=== PATIENT | female | born 1985 | race African-American/Black ===

== ENCOUNTER 2017-08-05 10:54 | Emergency (ER) | payer BC ==
[2017-08-05] MEDS ORDERED: Al Hydrox/Mg Hydrox/Simet LIQ* 30 ML UDC PO ONE (11:50)
[2017-08-05] MEDS ORDERED: Ondansetron INJ* 2 MG/ML VIAL IV ONE (11:50)
[2017-08-05] MEDS ORDERED: NS 0.9% 1000 ML* 1,000 ML IV ONE (11:50)
--- NOTE | 2017-08-05 12:08 | UC ---
Nausea/Vomiting/Diarrhea HPI - HPI Summary HPI Summary: 32 year old female with no significant pmhx here with URI symptoms that started last week and today nausea and vomiting since this morning. Reports she had congestion and cough for one week, and today she had 4 episodes of NBNB vomiting. Reports upper abdominal pain after several episodes of vomiting. Reports loose bowel movement this morning. No fever or chills. Denies urinary symptoms. No travel history. - History of Current Complaint Chief Complaint: UCGeneralIllness Stated Complaint: VOMITING Time Seen by Provider: 08/05/17 11:25 Hx Last Menstrual Period: 07/06/17 Pain Intensity: 7 Location: Diffuse - Allergies/Home Medications Allergies/Adverse Reactions: Allergies Allergy/AdvReac Type Severity Reaction Status Date / Time No Known Allergies Allergy Verified 08/05/17 11:17 PMH/Surg Hx/FS Hx/Imm Hx - Surgical History Surgical History: Yes Surgery Procedure, Year, and Place: ovarian cyst removal - Family History Known Family History: Positive: None - Social History Alcohol Use: None Substance Use Type: None Smoking Status (MU): Never Smoked Tobacco Review of Systems Constitutional: Negative Skin: Negative Eyes: Negative ENT: Negative Respiratory: Cough Cardiovascular: Negative Gastrointestinal: Vomiting Genitourinary: Negative Motor: Negative Neurovascular: Negative Musculoskeletal: Negative Neurological: Negative Psychological: Negative Is Patient Immunocompromised?: No All Other Systems Reviewed And Are Negative: Yes Physical Exam Triage Information Reviewed: Yes Appearance: Well-Appearing Vital Signs: Initial Vital Signs Temp 36.6 C 08/05/17 11:12 Pulse 66 08/05/17 11:12 Resp 16 08/05/17 11:12 BP 110/57 08/05/17 11:12 Pulse Ox 100 08/05/17 11:12 Vital Signs Reviewed: Yes ENT: Positive: Other - dry mucosal membrane Respiratory Exam: Normal Cardiovascular Exam: Normal Abdominal Exam: Normal Abdomen Description: Negative: CVA Tenderness (R), CVA Tenderness (L), Distended Neurological Exam: Normal Psychological Exam: Normal Skin Exam: Normal Re-Evaluation - Re-Evaluation First Eval Re-Evaluation Time: 01:00 Change: Improved Comment: Tolerating ice chips Second Eval Change: Improved - Tolerated cracker Naus/Vom/Diarrhea Course/Dx - Course Course Of Treatment: patient has no vaginal bleeding or abdominal pain. No concern for evaluation of ectopic. Instructed patient to follow up with bar catcher - Differential Dx/Diagnosis Differential Diagnoses - Female: Enterocolitis, Esophagitis/Gastritis, Vomiting , Pyelonephritis Provider Diagnoses: Hyperemesis gravidarium Condition At Discharge: Good Discharge - Sign-Out/Discharge Documenting (check all that apply): Discharge/Admit/Transfer - Discharge Plan Condition: Good Disposition: HOME Prescriptions: Ondansetron [Zofran Odt] 4 mg PO Q6HR PRN #20 tab PRN Reason: Vomiting 21/Iron Fu/Folic Acid [ Complete] 1 tab PO DAILY #30 tab Patient Education Materials: Hyperemesis Gravidarum (ED) Referrals: Baylee Suarez MD [Primary Care Provider] - Additional Instructions: Follow up with your bar catcher doctor for full evaluation - Billing Disposition and Condition Condition: GOOD Disposition: Home
[2017-08-05] MEDS ORDERED: D5NS 0.9% 1000 ML BAG* 1,000 ML IV SCH (13:00)
[2017-08-05 15:04] VITALS: BP 112/70
== END 2017-08-05 15:15 | disposition home or self-care (01) ==
LOC: UCEAST 10:54
DX: O21.0 Mild hyperemesis gravidarum (principal); R10.11 Right upper quadrant pain; R05 Cough; Z3A.00 Weeks of gestation of pregnancy not specified
CPT/HCPCS: 81003; 84702; 96360; 96361; 96374; 99213; A9270-GY; G0463; J2405

== ENCOUNTER 2018-03-20 08:02 | Inpatient (IN) | payer BC ==
[2018-03-20] MEDS ORDERED: Buffered Lidocaine 1% SYRIN* 1 ML/SYRINGE INTRADERM ONE (08:19)
--- NOTE | 2018-03-20 08:42 | HP ---
General Information - Reason for Visit Term induction at 39 weeks in presence of IUGR - General Information Maternal Age: 33 Grav: 2 Para: 0 SAB: 1 IEA: 0 Estimated Due Date: 03/27/18 Determined By: Early Ultrasound Gestational Age in Weeks/Days: 39-0/7 Maternal Blood Type and Rh: O Positive - Results this Serology/RPR Result: Non-Reactive Rubella Result: Immune HBsAg Result: Negative HIV Result: Negative GBS Culture Result: Negative Past Medical History Delivery History: See Records Delivery History Comment: primip Pertinent Past Medical History: See Records Past Medical History Comment: PCOS Obesity with significant weight loss prior to Pertinent Past Surgical History: See Records Past Surgical History Comment: 03/2013 Laparoscopy to remove left ovarian cyst - Antepartal Records Antepartal Records: Reviewed, Complicated by: - Obesity, IUGR, mother is a carrier for SMA Review of Systems Constitutional: Comfortable CV Complaint: No Respiratory: Shortness of Breath: No Gastrointestinal: No Nausea/Vomiting, Normal Bowel Movement Genitourinary: No Dysuria, No Bleeding, No Leaking Fluid Musculoskeletal: No Complaint, No Epigastric Pain Neurological: No Headache, No Visual Changes Movement: Normal Exam Allergies/Adverse Reactions: Allergies No Known Allergies Allergy (Verified 08/05/17 11:17) BP 126/79 HR 92 RR 20 T 98.6 SpO2 99% on RA - Measurements Height: 5 ft 1 in Weight: 240 lb Weight in lbs: [id number] Body Mass Index (BMI): 45.3 Pre- Weight: 177 lb - Exam Breast: Breast Exam Deferred CVA: No CVA Tenderness Extremities: No Edema Heart: Normal Rhythm/Heart Sounds HEENT: No Significant Findings Lungs: Clear Bilaterally Rectal: Rectal Exam Deferred Reflexes: DTR 2+ Thyroid: No Thyromegaly - Abdominal Exam Abdomen Exam: Non-Tender - Ultrasound/Biophysical Profile Ultrasound Status: Not Done Targeted Exam Findings See L&D Outpatient Visit Provider Note for Findings: N/A Estimated Weight: EFW 5lbs by sono 03/10/18 Cervical Exam: 1cm Effacement: 80% Station: -1 Presenting Part: Vertex Membrane Status: Intact Sterile Speculum Exam: not done Bleeding/Discharge: None EFM Findings - External Monitor Findings Baseline Heart Rate: 140 External Monitor Findings: Accelerations Present, No Pattern of Variable or Late Decelerations, Variability Moderate, Baseline Stable External Monitor Findings Comment: No evidence of metabolic acidemia/ Reactive NST Contractions: None Assessment/Plan - Assessment IUP at 39-0/7 with IUGR Obesity with excess weight gain in (TWG 62lbs) No evidence of metabolic acidemia Cervix favorable for induction with Mims's score of 9 - Plan Plan: Induction Plan Comment: P: Admit. Counseled for induction in presence of favorable cervix. PARQ IV pitocin. Pt agrees. Plan continuous monitoring in presence of IUGR. Dr. Newton aware of pt presence and condition. Agrees with plan to proceed with induction of labor - Date/Time of Admission Date of Admission: 03/20/18 Time of Admission: 08:25
[2018-03-20] MEDS ORDERED: Lactated Ringers 1000 ML Bag* 1,000 ML IV SCH ×3 (09:00→18:00)
[2018-03-20] MEDS ORDERED: Oxytocin in LR* 20 UNITS/1,000 ML BAG IVPB SCH ×2 (09:00→18:00)
[2018-03-20 09:26] LABS: ABS Basophils 0.1 10^3/ul (0-0.2); ABS Eosinophils 0.1 10^3/ul (0-0.6); ABS Lymphocytes 1.6 10^3/ul (1.0-4.8); ABS Monocytes 0.8 10^3/ul (0-0.8); ABS Neutrophils 8.1 10^3/ul (1.5-7.7); ABS Nucleated RBC 0 10^3/ul; Eosinophil % 0.6 %; Hematocrit 36 % (35-47); Hemoglobin 11.7 g/dl (12.0-16.0); Lymphocyte % 15.3 %; Mean Corpuscular HGB Conc 32 g/dl (31-36); Mean Corpuscular Hemoglobin 28 pg (27-31); Mean Corpuscular Volume 87 fL (80-97); Mean Platelet Volume 9.1 fL (7.4-10.4); Nucleated Red Blood Cells % 0; Platelet Count 330 10^3/ul (150-450); Red Blood Count 4.19 10^6/ul (4.00-5.40); Red Cell Distribution Width 15 % (10.5-15); White Blood Count 10.6 10^3/ul (3.5-10.8)
--- NOTE | 2018-03-20 12:05 | PN ---
Progress Note - Progress Note Date of Service: 03/20/18 Note: S: Paged to bedside to review FHT. Pt increasingly uncomfortable with UCs. O: BP 126/79 HR 83 T 98.6 SpO2 100% on RA FHT 145-150bpm. Moderate variability. Variable decels with run of closely spaced uterine contractions. IV pitocin reduced from 11mu/min to 5mu/min and FHT improved. Now occ decel with UCs with good recovery to baseline. Difficulty tracing FHT due to maternal body habitus and movements in bed. UCs q 2-3 VE: 3cm/100%/vtx -1 A: IUP at 39 weeks in early active labor Cat II FHT P: FSE applied to improve quality of FHT tracing. AROM to clear, blood tinged fluid with application. O2 by mask, increased IV fluid. Will continue to monitor maternal/ status closely. Dr. Newton in house and aware of FHT.
[2018-03-20] MEDS ORDERED: OBEPIDURAL* 250 ML EPIDURAL ONE (12:48)
--- NOTE | 2018-03-20 12:50 | PN ---
Progress Note - Progress Note Date of Service: 03/20/18 Note: Quick Note: Pt requests VE as she's feeling more pressure VE: 3-4cm/100%/vtx -1 FHT Cat II with occ early type decels, doubt metabolic acidemia Pt requests epidural. Anesthesia paged for bedside consult.
[2018-03-20] MEDS ORDERED: Lidocaine 1% INJ* 10 MG/ML 30 ML SDV ONE (13:05)
[2018-03-20] MEDS ORDERED: Phenylephrine IV* 40 MCG/ML 10 ML SYRINGE IV PUSH PRN (13:25)
[2018-03-20] MEDS ORDERED: Lactated Ringers 1000 ML Bag* 1,000 ML IV ONE (13:25)
[2018-03-20] MEDS ORDERED: Sodium Citrate/Citric Acid* 15 ML UDC PO PRN (13:25)
[2018-03-20] MEDS ORDERED: Famotidine TAB* 20 MG PO PRN (13:25)
[2018-03-20] MEDS ORDERED: Famotidine IV* 10 MG/ML 2 ML (20 mg) IV PRN (13:25)
--- NOTE | 2018-03-20 13:55 | PN ---
Progress Note - Progress Note Date of Service: 03/20/18 Note: S: Pt comfortable s/p epidural placements. Reports some rectal pressure. Requests VE O: BP 102/46 HR 72 FHT: 140bpm. Moderate variability. Isolated deep variable with hypotension s/p epidural placements. Recovered to phenylephrine, O2 by mask, position change. Non since. Occ early type decel UCs q 4 min IV pitocin off for epidural but turned back on at 3mu/min post procedure VE: 4-5/100%/vtx -1 +bloody show A: IUP at 39 weeks with IUGR in early active labor Cat II FHT, doubt metabolic acidemia P: Enc rest. Close monitoring of maternal/ status. Continue IV pitocin.
[2018-03-20] MEDS ORDERED: OBEPIDURAL* 250 ML EPIDURAL SCH (14:00)
--- NOTE | 2018-03-20 15:19 | PN ---
Progress Note - Progress Note Date of Service: 03/20/18 Note: S: Paged to bedside for eval of FHT tracing. Pt with increased rectal pressure with UCs O: VSS, afebrile FHT 140bpm. Moderate variability. Rare variable decels and occ early type decels UCs q 2-4 min (difficult to trace due to pt body habitus and frequent position changes) VE: 7cm/100%/vtx -1 +bloody show, FSE no longer attached thus tracing inaccurate , FSE removed A: IUP at 39 weeks with IUGR in active labor Cat II FHT, bears close monitoring P: Able to auscultate FHT transabdominally. Will consider replacing FSE PRN. Close monitoring of maternal/ status.
[2018-03-20] MEDS ORDERED: Bupivacaine 0.25% SDV PF* 10 ML VIAL INJ ONE (15:38)
[2018-03-20] MEDS ORDERED: Glycerin ADULT SUPP PR PRN (17:24)
[2018-03-20] MEDS ORDERED: Witch Hazel PAD* JAR TOPICAL PRN (17:24)
[2018-03-20] MEDS ORDERED: Dibucaine 1% 28.35 GM TUBE PR PRN (17:24)
[2018-03-20] MEDS ORDERED: Acetaminophen TAB* 325 MG PO PRN (17:24)
[2018-03-20] MEDS ORDERED: Simethicone TAB* 80 MG TAB.CHEW PO SCH (17:30)
--- NOTE | 2018-03-20 17:31 | PROCNOTE ---
[facility] OB: Delivery Note - Delivery A Date of : 03/20/18 Time of : 17:01 [place] Sex: Female Score 1 Minute: 5 Score 5 Minutes: 8 - 9 at 10 min Gestational Age in Weeks and Days at Delivery: 39 Weeks and 0 Days Delivery Method: Spontaneous Vaginal Labor: Induced - for IUGR Did Patient attempt ?: N/A, No Previous Amniotic Fluid: Clear Estimated Blood Loss: 200 Anesthesia/Analgesia: CEI for Labor - placed by Dr. Pak Delivered By: Van Lopez - Nursery Level of Nursery: Regular/Bedside - Perineum Perineal Injury: None/Intact Perineal Repair: None - Events Delivery Events of Note: Pitocin During Labor, Supplemental O2 to Mother - Additional Delivery Notes Additional Delivery Notes: Pt admitted for term induction of labor at 39 weeks for IUGR. also complicated by obesity with excessive weight gain of 62 lbs. IV pitocin led to onset active labor. Amniotomy to clear fluid with application of FSE to assist with difficulties tracing FHT due to pt body habitus. Category II FHT throughout labor but baseline stable and variability maintained throughout labor. O2 by mask and IV fluids also utilized with good benefit. Length of active phase 5 hours, 1 min. Pushed x 26 min. liveborn female. Slow, controlled delivery of head. OA to PAM. Shoulders and body followed quickly. [place] initially stunned. After delayed cord clamping cord clamped x 2 and cut by FOB. to warmer for evaluation by special care nurse. Apgars 5/8/9. Spontaneous delivery intact placenta. Membranes complete. Fundus firm to massage with minimal bleeding noted. IV pitocin infusing. Careful inspection of perineum showed no lacerations. Small right sublabial abrasion noted. Hemostatic and not repaired. EBL 200mL. At time of note mother and in stable condition. Planning to breast feed.
[2018-03-20] MEDS: Ibuprofen TAB* 600 MG PO PRN (18:37)
[2018-03-20] MEDS: Docusate CAP* 100 MG PO SCH (20:57)
[2018-03-21] MEDS: Ibuprofen TAB* 600 MG PO PRN ×3 (04:13→21:40)
[2018-03-21 05:51] LABS: ABS Basophils 0.1 10^3/ul (0-0.2); ABS Eosinophils 0.1 10^3/ul (0-0.6); ABS Lymphocytes 1.6 10^3/ul (1.0-4.8); ABS Monocytes 0.8 10^3/ul (0-0.8); ABS Nucleated RBC 0 10^3/ul; Eosinophil % 0.4 %; Hematocrit 33 % (35-47); Hemoglobin 10.5 g/dl (12.0-16.0); Lymphocyte % 13.1 %; Mean Corpuscular HGB Conc 32 g/dl (31-36); Mean Corpuscular Hemoglobin 28 pg (27-31); Mean Corpuscular Volume 87 fL (80-97); Mean Platelet Volume 8.4 fL (7.4-10.4); Nucleated Red Blood Cells % 0; Platelet Count 276 10^3/ul (150-450); Red Blood Count 3.78 10^6/ul (4.00-5.40); Red Cell Distribution Width 14 % (10.5-15); White Blood Count 12.6 10^3/ul (3.5-10.8)
[2018-03-21] MEDS ORDERED: Ferrous Gluconate TAB* 324 MG TAB PO SCH (09:00)
[2018-03-21] MEDS: Docusate CAP* 100 MG PO SCH ×3 (10:24→21:41)
[2018-03-22] MEDS: Ibuprofen TAB* 600 MG PO PRN (08:07)
[2018-03-22] MEDS: Docusate CAP* 100 MG PO SCH ×2 (08:07→15:46)
[2018-03-22 08:16] VITALS: BP 119/63
== END 2018-03-22 17:00 | disposition home or self-care (01) | DRG 560 ==
LOC: MCHOBOUT 08:02 → MCHOB 08:22
PROVIDERS: ADMIT Midwife; ATTEND Midwife
PROC: 10E0XZZ Delivery of Products of Conception, External Approach (ICD-10-PCS; principal; 2018-03-20)
PROC: 3E033VJ Introduction of Other Hormone into Peripheral Vein, Percutaneous Approach (ICD-10-PCS; 2018-03-20)
PROC: 10907ZC Drainage of Amniotic Fluid, Therapeutic from Products of Conception, Via Natural or Artificial Opening (ICD-10-PCS; 2018-03-20)
DX: O36.5930 Maternal care for other known or suspected poor fetal growth, third trimester, not applicable or unspecified (principal); Z37.0 Single live birth; O99.214 Obesity complicating childbirth; O99.284 Endocrine, nutritional and metabolic diseases complicating childbirth; E28.2 Polycystic ovarian syndrome; O76 Abnormality in fetal heart rate and rhythm complicating labor and delivery; Z3A.39 39 weeks gestation of pregnancy
CPT/HCPCS: 36415; 85025; 86850; 86900; 86901; 88307; A9270-GY; J3490